=== PATIENT | male | born 1965 | race Caucasian/White ===

== ENCOUNTER 2017-07-30 21:23 | Emergency (ER) | payer MEDICAID ==
[~2017-07-30] VITALS: Ht 167.6 cm; Wt 99.8 kg
[2017-07-30] MEDS ORDERED: KEFLEX500 M1 PO (22:50)
[2017-07-30] MEDS ORDERED: TRAMADOL 50 MG50 MG PO (22:50)
[2017-07-30] MEDS ORDERED: NAPROSYN500 MG PO (22:50)
[2017-07-30 23:07] VITALS: BP 130/82
== END 2017-07-30 23:08 | disposition home or self-care (01) ==
LOC: M.ERS 21:23
DX: L03.116 Cellulitis of left lower limb (principal); M25.561 Pain in right knee

== ENCOUNTER 2018-04-09 08:57 | Emergency (ER) | payer MEDICAID ==
[~2018-04-09] VITALS: Ht 172.7 cm; Wt 81.7 kg
[~2018-04-09 08:57] MED LIST: KEFLEX500 M1 PO; NAPROSYN500 MG PO; TRAMADOL 50 MG50 MG PO
[2018-04-09] MEDS ORDERED: BACTRIM DS TAB1 EACH PO (09:26)
[2018-04-09 09:42] VITALS: BP 168/96
[2018-04-10] MEDS ORDERED: KEFLEX500 M1 PO (13:52)
[2018-04-10] MEDS ORDERED: MEDROLDOSEPACK PO (13:52)
== END 2018-04-09 09:42 | disposition home or self-care (01) ==
LOC: M.ERS 08:57
DX: L03.311 Cellulitis of abdominal wall (principal); L03.114 Cellulitis of left upper limb; L03.113 Cellulitis of right upper limb; L03.116 Cellulitis of left lower limb; L03.115 Cellulitis of right lower limb; I10 Essential (primary) hypertension; E11.9 Type 2 diabetes mellitus without complications; Z88.0 Allergy status to penicillin

== ENCOUNTER 2018-04-10 13:04 | Emergency (ER) | payer MEDICAID ==
[~2018-04-10] VITALS: Ht 172.7 cm; Wt 113.4 kg
[~2018-04-10 13:04] MED LIST changes: +BACTRIM DS TAB1 EACH PO
[2018-04-10] MEDS ORDERED: MEDROLDOSEPACK PO (13:52)
[2018-04-10] MEDS ORDERED: KEFLEX500 M1 PO (13:52)
[2018-04-10 14:05] VITALS: BP 179/81
== END 2018-04-10 14:06 | disposition home or self-care (01) ==
LOC: M.ERS 13:04
DX: L27.0 Generalized skin eruption due to drugs and medicaments taken internally (principal); T50.905A Adverse effect of unspecified drugs, medicaments and biological substances, initial encounter; Y92.9 Unspecified place or not applicable; E11.9 Type 2 diabetes mellitus without complications; I10 Essential (primary) hypertension; F17.200 Nicotine dependence, unspecified, uncomplicated; Z88.0 Allergy status to penicillin; Z88.2 Allergy status to sulfonamides; Z88.8 Allergy status to other drugs, medicaments and biological substances

== ENCOUNTER 2020-04-14 16:22 | Emergency (ER) | payer OTHER ==
[~2020-04-14] VITALS: Ht 167.6 cm; Wt 104.0 kg
[~2020-04-14 16:22] MED LIST changes: +MEDROLDOSEPACK PO
[2020-04-14] MEDS ORDERED: TRIAMCINOLONE430 GM TOP (17:18)
[2020-04-14] MEDS ORDERED: CENTANY30 GM TOP (17:18)
[2020-04-14] MEDS ORDERED: HYDROXYZINE HCL25 M2 PO (17:18)
[2020-04-14] MEDS ORDERED: KEFLEX500 M1 PO (17:18)
[2020-04-14 17:36] VITALS: BP 181/112
== END 2020-04-14 17:38 | disposition home or self-care (01) ==
LOC: M.ERS 16:22
DX: L03.114 Cellulitis of left upper limb (principal); I10 Essential (primary) hypertension; E11.9 Type 2 diabetes mellitus without complications; F17.210 Nicotine dependence, cigarettes, uncomplicated; Z88.0 Allergy status to penicillin; Z88.2 Allergy status to sulfonamides; Z88.1 Allergy status to other antibiotic agents